=== PATIENT | male | born 1990 | race Caucasian/White ===

== ENCOUNTER 2022-11-19 11:49 | Emergency (ER) | payer OTHER ==
[2022-11-19 11:55] VITALS: BP 124/76; PULSE 76; RESP 19; TEMP 97.8
[2022-11-19] MEDS ORDERED: DALBAVANCIN HCL 1,500 MG in DEXTROSE 5%-WATER - 500 ML IVPB ONE (13:35)
[2022-11-19] MEDS ORDERED: DALBAVANCIN HCL 500 MG VIAL (RESTRICTED TO ID ONLY) IVPB ONE (13:42)
== END 2022-11-19 16:00 | disposition home or self-care (01) ==
LOC: JERFT 11:49 → JER 11:49
PROC: 0H98XZZ Drainage of Buttock Skin, External Approach (ICD-10-PCS; principal; 2022-11-19)
PROC: 3E03329 Introduction of Other Anti-infective into Peripheral Vein, Percutaneous Approach (ICD-10-PCS; 2022-11-19)
DX: L02.31 Cutaneous abscess of buttock (principal)
CPT/HCPCS: 76705-TC; 99284-25; J0875

== ENCOUNTER 2023-08-07 10:50 | Emergency (ER) | payer OTHER ==
[2023-08-07] MEDS ORDERED: LACOSAMIDE 100 MG TABLET PO ONE ×2 (11:21→14:21)
[2023-08-07] MEDS ORDERED: LACOSAMIDE 200 MG TABLET PO ONE ×2 (11:27→14:25)
[2023-08-07 11:51] LABS: BASO % 0.3 % (0-2.0); EOS % 1.3 % (0-4.5); HEMATOCRIT 43.2 % (35.4-49); HEMOGLOBIN 14.6 GM/dL (11.7-16.9); LYMPH % 45.4 % (8-40); MCH 33.3 pg (25.7-33.7); MCHC 33.8 g/dl (32.0-35.9); MEAN CELL VOLUME 98.7 fl (80-96); MEAN PLT VOLUME 7.6 fl (7.5-11.1); MONO % 6.8 % (3.8-10.2); NEUT % 46.2 % (42.8-82.8); PLATELET COUNT 220 10^3/uL (134-434); RBC 4.38 M/mm3 (4.00-5.60); WHITE BLOOD COUNT 9.7 K/mm3 (4.0-10.0)
[2023-08-07 12:14] LABS: POTASSIUM 4.1 mmol/L (3.5-5.1)
[2023-08-07 12:18] LABS: ALBUMIN 3.9 g/dl (3.4-5.0); BLOOD UREA NITROGEN 14.8 mg/dL (7-18); CALCIUM 9.1 mg/dL (8.5-10.1)
[2023-08-07 12:23] LABS: BILIRUBIN,TOTAL 0.4 mg/dL (0.2-1); TOT PROT 7.6 g/dl (6.4-8.2)
[2023-08-07 13:00] VITALS: BP 128/74; PULSE 72; RESP 18; TEMP 98.3; BMI 20.1
== END 2023-08-07 14:34 | disposition home or self-care (01) ==
LOC: JER 10:50
DX: G40.909 Epilepsy, unspecified, not intractable, without status epilepticus (principal); R53.1 Weakness; R20.2 Paresthesia of skin
CPT/HCPCS: 36415; 80053; 82962; 85025; 93005; 93010; 99284-25